=== PATIENT | female | born 1990 | race Caucasian/White ===

== ENCOUNTER 2017-08-04 10:44 | Emergency (ER) | payer OTHER ==
[2017-08-04] MEDS: ONDANSETRON 4 MG ORAL DISINTEGRATING TAB (S0181) PO (12:33)
[2017-08-04] MEDS: KETOROLAC 60 MG/2 ML VIAL (J1885) IM (13:04)
== END 2017-08-04 13:15 | disposition home or self-care (01) ==
LOC: M ED 10:44
DX: R51 Headache (principal); M54.2 Cervicalgia; Z79.899 Other long term (current) drug therapy
CPT/HCPCS: J1885

== ENCOUNTER 2020-07-12 20:42 | Emergency (ER) | payer OTHER ==
[~2020-07-12] VITALS: Ht 162.6 cm; Wt 71.5 kg
[~2020-07-12 20:42] MED LIST: CELE10TA PO; IBUP1TAB5 GT; NAPR-885 PO; ROBA500T PO; TIZA6CAP PO; ZOFR4TAB14 PO
[2020-07-12] MEDS ORDERED: MELO15TA28 PO (20:57)
[2020-07-12] MEDS ORDERED: ASPI81CH33 PO (20:57)
[2020-07-12] MEDS ORDERED: BUPR75TA5 PO (20:57)
[2020-07-12] MEDS ORDERED: KETOROLAC 30 MG/ML 1ML VIAL IV ONE (22:00)
[2020-07-12 22:23] LABS: BASO # 0.1 10^3/uL (0.0-0.2); BASO % 0.6 % (0.0-1.0); EOS # 0.9 10^3/uL (0.0-0.5); EOS % 6.6 % (0.0-3.0); HEMATOCRIT 42.2 % (36.0-47.0); HEMOGLOBIN 14.5 g/dl (12.0-15.5); LYMPH # 3.1 10^3/uL (1.5-5.0); LYMPH % 22.2 % (24.0-44.0); MEAN CORPUSCULAR HEMOGLOBIN 32.3 pg (27.0-33.0); MEAN CORPUSCULAR HGB CONC 34.4 g/dl (32.0-36.5); MONO # 1.2 10^3/uL (0.0-0.8); MONO % 8.7 % (2.0-8.0); NEUTROPHILS # 8.4 10^3/uL (1.5-8.5); NEUTROPHILS % 61.4 % (36.0-66.0); PLATELET COUNT, AUTOMATED 355 10^3/uL (150-450); RED BLOOD COUNT 4.49 10^6/uL (4.00-5.40); WHITE BLOOD COUNT 13.7 10^3/uL (4.0-10.0)
[2020-07-12 22:57] LABS: BLOOD UREA NITROGEN 11 MG/DL (7-18); CALCIUM LEVEL 8.6 MG/DL (8.5-10.1); CARBON DIOXIDE LEVEL 26 MEQ/L (21-32); CHLORIDE LEVEL 107 MEQ/L (98-107); CK-MB VALUE MASS < 1.0 NG/ML (<3.6); CPK CREATINE PHOSPHOKINASE 52 U/L (26-192); GLOMERULAR FILTRATION RATE > 60.0 (>60); GLUCOSE, FASTING 82 MG/DL (70-100); MB/CK RELATIVE INDEX 1.92 (< OR =4); POTASSIUM SERUM 3.8 MEQ/L (3.5-5.1); SODIUM LEVEL 140 MEQ/L (136-145); TROPONIN I < 0.02 NG/ML (< 0.10)
[2020-07-12] MEDS ORDERED: ISOVUE-370 76% 100ML VIAL As Ordered ONE (23:06)
--- NOTE | 2020-07-12 23:18 | REPVR ---
PROCEDURE INFORMATION: Exam: XR Chest Exam date and time: 07/12/2020 10:30 PM Age: 30 years old Clinical indication: Pain; Chest pressure; Additional info: Chest pain TECHNIQUE: Imaging protocol: XR of the chest Views: 1 view. COMPARISON: No relevant prior studies available. FINDINGS: Lungs: There is mild prominence of the markings left infrahilar region. The lungs are otherwise clear. Pleural spaces: There is no evidence of pneumothorax or pleural effusion. Heart/Mediastinum: The heart is normal in size. Bones/joints: There is no evidence of bony abnormality. IMPRESSION: Mild prominence of markings at the left lung base. The lungs are otherwise clear. Electronically signed by: Adolfo Flores On 07/12/2020 23:18:53 PM
--- NOTE | 2020-07-12 23:35 | REPVR ---
PROCEDURE INFORMATION: Exam: CT Angiography Chest With Contrast Exam date and time: 07/12/2020 9:57 PM Age: 30 years old Clinical indication: Chest pain; Type not specified; Additional info: R/O pe TECHNIQUE: Imaging protocol: Computed tomographic angiography of the chest with contrast. 3D rendering (Not supervised by radiologist): MIP and/or 3D reconstructed images were created by the technologist. Radiation optimization: All CT scans at this facility use at least one of these dose optimization techniques: automated exposure control; mA and/or kV adjustment per patient size (includes targeted exams where dose is matched to clinical indication); or iterative reconstruction. Contrast material: ISO; Contrast volume: 75 ml; Contrast route: INTRAVENOUS (IV); COMPARISON: CR PORTABLE CHEST X-RAY 07/12/2020 10:27 PM FINDINGS: Pulmonary arteries: There is opacification of the pulmonary arteries with no evidence of pulmonary embolus. Aorta: There is opacification of the aorta which appears intact. Lungs: There is mild atelectasis at the lung bases. Pleural spaces: There is no evidence of pneumo thorax or pleural effusion. Heart: The heart is normal in size and there is no pericardial effusion. Lymph nodes: There is no evidence of mediastinal or hilar lymphadenopathy. Bones/joints: Unremarkable. No acute fracture. Soft tissues: There is no evidence of soft tissue abnormality. IMPRESSION: No evidence of pulmonary embolus. Electronically signed by: Adolfo Flores On 07/12/2020 23:34:30 PM
[2020-07-13] MEDS ORDERED: NAPR-837 PO (01:06)
[2020-07-13 01:25] VITALS: BP 116/63
--- NOTE | 2020-07-14 01:27 | ECGEPIP ---
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
== END 2020-07-13 01:27 | disposition home or self-care (01) ==
LOC: M ED 20:42
DX: R07.89 Other chest pain (principal); F41.9 Anxiety disorder, unspecified; F33.9 Major depressive disorder, recurrent, unspecified; Z79.82 Long term (current) use of aspirin; Z79.899 Other long term (current) drug therapy
CPT/HCPCS: 71045; 71275; 80048; 82550; 82553; 84484; 84702; 85025; 93005; 93041; 94760; 96374; 99284; J1885; Q9967

== ENCOUNTER → 2020-10-31 | Outpatient (REF) ==
[~2020-10-31] MED LIST changes: +ASPI81CH33 PO; +BUPR75TA5 PO; +MELO15TA28 PO; +NAPR-837 PO
--- NOTE | 2020-10-31 19:21 | REP ---
INDICATION: BACK PAIN SOB. COMPARISON: Comparison chest x-ray July 12, 2020. TECHNIQUE: Two views.. FINDINGS: The lungs are well inflated and free of infiltrate. The pleural angles are sharp. The heart size is normal. Pulmonary vasculature is not increased. No significant bony abnormality is seen. IMPRESSION: Negative chest x-ray. <Electronically signed by Aris Solomon > 10/31/201916
--- NOTE | 2020-10-31 19:23 | REP ---
INDICATION: BACK PAIN SOB. COMPARISON: None. TECHNIQUE: Three views, lateral, AP, and lateral spot radiographs are provided. FINDINGS: Lumbar vertebral body heights are preserved. Alignment is normal. Pedicles and posterior elements are intact. Psoas margins are symmetric. Sacrum and SI joints are unremarkable. Disc spaces are maintained. There is no evidence of spondylolysis or spondylolisthesis. On the lateral radiograph, there is degenerative disc narrowing at T12-L1 and T11-12 with early osteophyte formation anteriorly at these levels. IMPRESSION: Minimal degenerative disc disease changes at the thoracolumbar junction. Otherwise negative radiographs of the lumbar spine. <Electronically signed by Aris Solomon > 10/31/201918
== END ==
LOC: M PLAIMG 12:07
PROVIDERS: ATTEND Internal Medicine
DX: M54.5 Low back pain (principal)